=== PATIENT | male | born 1945 | race Caucasian/White ===

== ENCOUNTER 2018-03-31 09:04 | Day surgery (SDC) | payer MEDICARE ==
[~2018-03-31] VITALS: Ht 172.7 cm; Wt 84.1 kg
[2018-03-31 09:11] VITALS: BP 135/55
[2018-03-31] MEDS ORDERED: fentaNYL/PF 50MCG/1 ML 2ML syringe ONE (09:49)
[2018-03-31] MEDS ORDERED: MIDAZolam 5mg/5ml vial ONE ×2 (09:50)
[2018-03-31] MEDS ORDERED: INSU100C10 SQ (09:53)
[2018-03-31] MEDS ORDERED: MULT-38 PO (09:54)
[2018-03-31] MEDS ORDERED: CHOL10002 PO (09:55)
[2018-03-31] MEDS ORDERED: LISI40TA4 PO (09:55)
[2018-03-31] MEDS ORDERED: TERA5CAP4 PO (09:56)
[2018-03-31] MEDS ORDERED: PRAV40TA PO (09:56)
[2018-03-31] MEDS ORDERED: CLOP75TA33 PO (09:57)
[2018-03-31 10:32] VITALS: BP 110/49
[2018-03-31 10:42] VITALS: BP 119/51
[2018-03-31 10:52] VITALS: BP 125/64
== END 2018-03-31 11:27 | disposition home or self-care (01) ==
LOC: GI LAB 09:04
PROVIDERS: ATTEND Internal Medicine Gastroenterology
DX: Z12.11 Encounter for screening for malignant neoplasm of colon (principal); D12.8 Benign neoplasm of rectum; K64.8 Other hemorrhoids; K63.5 Polyp of colon; I10 Essential (primary) hypertension; E10.9 Type 1 diabetes mellitus without complications; Z95.1 Presence of aortocoronary bypass graft; Z87.891 Personal history of nicotine dependence; Z79.4 Long term (current) use of insulin; Z79.899 Other long term (current) drug therapy
CPT/HCPCS: 45380; 45385; 99153; G0500; J2250; J3010; J7030; A4620

== ENCOUNTER 2022-02-02 09:00 | Inpatient (IN) | payer MEDICARE ==
[2022-01-31 11:53] LABS: BASOPHILS % (AUTO) 0.2 % (0-1); EOSINOPHILS # (AUTO) 0.1 X10'3 (0-0.9); EOSINOPHILS % (AUTO) 2.5 % (0-6); LYMPHOCYTES # (AUTO) 0.7 X10'3 (1.1-4.8); LYMPHOCYTES % (AUTO) 14.6 % (21-51); MEAN CORPUSCULAR HEMOGLOBIN 29.8 PG (27.0-31.0); MEAN CORPUSCULAR VOLUME 90.4 FL (78-98); MEAN PLATELET VOLUME 9.2 FL (7.4-10.4); MONOCYTES # (AUTO) 0.6 X10'3 (0-0.9); NEUTROPHILS # (AUTO) 3.1 X10'3 (1.8-7.7); NEUTROPHILS % (AUTO) 69.7 % (42-75); PRE OP HEMATOCRIT 33.5 % (42.0-52.0); PRE OP PLATELET COUNT 184 X10'3 (140-440); RED CELL DISTRIBUTION WIDTH 14.5 % (11.5-14.5)
[2022-01-31 12:06] LABS: PRE OP PROTIME 10.2 SECONDS (9.0-12.0)
[2022-01-31 12:08] LABS: HEMOGLOBIN A1C 8.7 % (4.5-6.2)
[2022-01-31 12:09] LABS: ALBUMIN 2.9 G/DL (3.4-5.0); ALBUMIN/GLOBULIN RATIO 0.8 (1.1-1.5); ALKALINE PHOSPHATASE 83 IU/L (46-116); BLOOD UREA NITROGEN 43 MG/DL (7-18); BUN/CREATININE RATIO 19.5 (5.4-32.0); CALCIUM 8.4 MG/DL (8.5-10.1); CHLORIDE 100 MMOL/L (99-107); PRE OP ALT 52 U/L (30-65); PRE OP ANION GAP 11 (8-16); PRE OP AST 89 U/L (10-37); PRE OP BILIRUB, TOTAL 0.3 MG/DL (0.0-1.0); PRE OP POTASSIUM 5.1 MMOL/L (3.4-5.1); PRE OP SODIUM 133 MMOL/L (135-145); TOTAL PROTEIN 6.4 G/DL (6.4-8.2); eGFR 29 ML/MIN
[2022-01-31 12:32] LABS: CLARITY,URINE CLEAR (Clear); COLOR,URINE YELLOW (Yellow); GLUCOSE, URINE 500 mg/dl (Neg); KETONES,URINE NEGATIVE (Neg); LEUKOCYTE ESTERASE ,URINE NEGATIVE (Neg); NITRITES, URINE NEGATIVE (Neg); OCCULT BLOOD,URINE SMALL (Neg); PROTEIN,URINE 30 mg/dl (Neg); UROBILINOGEN,URINE 0.2 E.U/dL (0.2-1.0)
[2022-01-31 12:33] LABS: PRE OP GLUCOSE 340 MG/DL (70-104)
[2022-01-31 12:35] LABS: UA COLLECTION TYPE CLN CATCH MIDSTREAM
[2022-01-31 12:39] LABS: SQUAMOUS EPITHELIAL CELL,UR FEW /LPF (FEW)
[2022-01-31 12:40] LABS: BACTERIA,URINE 1+ /HPF (Neg); RBC,URINE 0-2 /HPF (0-2); WBC,URINE 0-4 /HPF (0-4)
[~2022-02-02] VITALS: Ht 172.7 cm; Wt 94.6 kg
[~2022-02-02 09:00] MED LIST: CARB1TAB36 PO; CLOP75TA33 PO; FINA5TAB11 PO; FURO20TA4 PO; INSU100C10 SQ; LISI-645 PO; ROSU40TA22 PO; TERA5CAP4 PO; albuterol 2.5 MG/3 ML nebule NEB ONE; cefazolin/dext.iso 2gm/50ml IV ONE; famotidine 20mg tablet PO ONE; ringers solution, lacted 1,000 ML IV SCH
[2022-02-06] VITALS (13 sets, daily range): BP systolic 136–195; BP diastolic 45–75
[2022-02-06] MEDS ORDERED: ringers solution, lacted 1,000 ML IV SCH ×2 (05:00→17:15)
[2022-02-06] MEDS ORDERED: famotidine 20mg tablet PO ONE (05:30)
[2022-02-06] MEDS ORDERED: albuterol 2.5 MG/3 ML nebule NEB ONE (05:30)
[2022-02-06] MEDS ORDERED: cefazolin/dext.iso 2gm/50ml IV ONE (05:30)
[2022-02-06] MEDS ORDERED: BUPIVAcaine 0.5% inj/PF 0 ML ONE (14:19)
[2022-02-06] MEDS ORDERED: heparin 10,000 units/1 ML INJ ONE (14:19)
[2022-02-06] MEDS ORDERED: fentaNYL /PF 50mcg/ml 5ml ampule ONE (14:36)
[2022-02-06] MEDS ORDERED: LIDOcaine 2% (20mg/ml) 5ml vial ONE (14:38)
[2022-02-06] MEDS ORDERED: rocuronium 10mg/ml inj IV ONE (14:38)
[2022-02-06] MEDS ORDERED: propofol inj 20 ML IV ONE (14:38)
[2022-02-06] MEDS ORDERED: LIDOcaine 1% (10mg/ml) 2ml vial ONE ×3 (14:43→14:45)
[2022-02-06] MEDS ORDERED: dexamethasone sod phosphate 4mg/ml inj. ONE (15:11)
[2022-02-06] MEDS ORDERED: sevoflurane 250ml liquid IH ONE (15:11)
[2022-02-06] MEDS ORDERED: ePHEDrine 50MG/ML INJ. ONE (15:11)
[2022-02-06] MEDS ORDERED: glycopyrrolate 0.2mg/ml inj ONE (15:11)
[2022-02-06] MEDS ORDERED: neostigmine methylsulfate 1 MG/ML 10ml vial ONE (15:11)
[2022-02-06] MEDS ORDERED: insulin regular, human U-100 3ml vial - multi-dose ONE (16:31)
[2022-02-06] MEDS ORDERED: iohexol 300 MG/1 ML 50ml polymer ONE (16:37)
[2022-02-06] MEDS ORDERED: ondansetron/PF 4mg/2ml inj IV PRN ×2 (17:15→21:10)
[2022-02-06] MEDS ORDERED: morphine 2 MG/ML inj. syringe IV PRN (17:15)
[2022-02-06] MEDS ORDERED: HYDROmorphone/PF 0.2 MG/ML SYRINGE IV PRN ×2 (17:15)
[2022-02-06] MEDS ORDERED: heparin 1,000unit/ml 10ml vial 10 ML ONE (17:52)
[2022-02-06] MEDS ORDERED: albumin (Human) 5% 250ml 250 ML IV ONE ×2 (17:53→19:08)
[2022-02-06] MEDS: DexTRAN 40/D5W 500ml soln 500 ML IV SCH (18:15)
[2022-02-06] MEDS ORDERED: naloxone 0.4 mg/ml inj IV PRN (20:25)
[2022-02-06] MEDS ORDERED: Potassium Cl inj 20 MEQ in ringers solution, lacted 1,000 ML IV SCH (20:25)
--- NOTE | 2022-02-06 20:27 | NUR ---
Received from OR via ICU BED , accompanied by Anesthesiologist MARTÍNEZ and report given by Anesthesiolgist. PATIENT WITH TRIPLE LUMEN LINE TO RIGHT NECK. 20G PIV IN RIGHT UE. 10L MASK ON WITH 100% SATURATIONS. PATIENT WITH NO C.O. PAIN AT THIS TIME. ISLAND DRESSING ALSO TO RIGHT CALF TO THIGH DRESSING THAT IS CDI. ALBERTO CATHETER WITH CLEAR YELLOW URINE PRESENT. RN PRESENT TO ASSIST WITH SET UP. Addendum: 02/06/22 at 2045 by Kurt Poole RN, RN Amended: Links added.
[2022-02-06 20:47] LABS: APTT 135 SECONDS (22-32)
[2022-02-06 20:48] LABS: BASOPHILS % (AUTO) 0.3 % (0-1); EOSINOPHILS % (AUTO) 0.3 % (0-6); HEMATOCRIT 28.3 % (42.0-52.0); HEMOGLOBIN 9.4 g/dl (14.0-17.9); LYMPHOCYTES # (AUTO) 0.7 X10'3 (1.1-4.8); LYMPHOCYTES % (AUTO) 13.1 % (21-51); MEAN CORPUSCULAR HEMOGLOBIN 29.9 PG (27.0-31.0); MEAN CORPUSCULAR HGB CONC 33.3 g/dL (33.0-36.5); MEAN CORPUSCULAR VOLUME 89.8 FL (78-98); MONOCYTES # (AUTO) 0.1 X10'3 (0-0.9); MONOCYTES % (AUTO) 1.2 % (2-12); NEUTROPHILS # (AUTO) 4.8 X10'3 (1.8-7.7); NEUTROPHILS % (AUTO) 85.1 % (42-75); PLATELET COUNT 189 X10'3 (140-440); RED BLOOD COUNT 3.16 X10'6 (4.70-6.10); RED CELL DISTRIBUTION WIDTH 13.8 % (11.5-14.5); WHITE BLOOD COUNT 5.7 X10'3 (4.5-11.0)
[2022-02-06] MEDS ORDERED: hydrALAZINE 20mg/ml inj. IV ONE (20:58)
[2022-02-06] MEDS ORDERED: SODIUM CHLORIDE IV ONE (21:00)
[2022-02-06] MEDS ORDERED: NICARDIPINE IV ONE (21:00)
[2022-02-06] MEDS ORDERED: hydrALAZINE 20mg/ml inj. IV PRN ×2 (21:00→22:50)
[2022-02-06 21:02] LABS: ALANINE AMINOTRANSFERASE 71 U/L (12-78); ALBUMIN 2.8 G/DL (3.4-5.0); ALKALINE PHOSPHATASE 65 IU/L (46-116); ANION GAP 9 (8-16); ASPARTATE AMINO TRANSFERASE 30 U/L (10-37); BILIRUBIN,TOTAL 0.3 MG/DL (0.1-1.0); BLOOD UREA NITROGEN 27 MG/DL (7-18); BUN/CREATININE RATIO 21.3 (5.4-32.0); CALCIUM 7.5 MG/DL (8.5-10.1); CHLORIDE 106 MMOL/L (99-107); CREATININE 1.27 MG/DL (0.60-1.10); GLUCOSE 197 MG/DL (70-104); POTASSIUM 3.8 MMOL/L (3.5-5.1); SODIUM 138 MMOL/L (135-145); TOTAL CARBON DIOXIDE 22.7 MMOL/L (24-32); TOTAL PROTEIN 5.5 G/DL (6.4-8.2); eGFR 55 ML/MIN
--- NOTE | 2022-02-06 21:07 | NUR ---
RECOVERY PERFORMED IN THE ICU 2008 WITH ASSIST OF TOMMY SUMNER AND TOMMY DAWN. MD PALMER CAME BY. SHOWED SWELLING TO RIGHT INGUINAL AREA AND DONNED A LITER OF NS PER MD REQUEST. RN TO CONTINUE TO REASSESS. VSS. MD AWARE OF HIGHER BPS DURING RECOVERY AND APPROPRIATE MEDS ORDERED AND ADMINISTERED. DRESSING ALL STILL THE SAME FAR DRAINAGE. DP AND POSTERIOR TIB STILL BOTH PALPABLE AT THIS TIME. CALF/ THIGH DRESSINGS STILL SPOTTED AND CONTAINED WITHIN DRESSING . TOMMY DAWN ASSUMED CARE OF PATIENT. Addendum: 02/06/22 at 2116 by Kurt Torres - TOMMY SANDERS Amended: Links added.
[2022-02-06] MEDS ORDERED: HYDROcodone/acetaminophen 10/325mg tab PO PRN (21:10)
[2022-02-06] MEDS ORDERED: HYDROmorphone inj. 0.5 MG/0.5 ML DISP.SYRIN IV PRN (21:10)
[2022-02-06] MEDS ORDERED: niCARDipine-NS 40mg/200ml IVPB 200 ML IV PRN (21:10)
[2022-02-06] MEDS ORDERED: glucagon, human recombinant 1mg kit SUBCUT PRN (22:50)
[2022-02-06] MEDS ORDERED: MESSAGE TO PHARMACY PO ONE (22:50)
[2022-02-06] MEDS ORDERED: DEXTROSE 15 GM of carb/4 tabs (each vial/BOTTLE has 4 tablets) PO PRN ×2 (22:50)
[2022-02-06] MEDS ORDERED: dextrose 50%-water 50ml dispensing syringe IV PRN ×2 (22:50)
[2022-02-06] MEDS: HYDROcodone/acetaminophen 10/325mg tab PO PRN (23:03)
[2022-02-06] MEDS ORDERED: potassium 20mEq/D5LR 1,000 ML IV SCH (23:15)
--- NOTE | 2022-02-06 23:56 | NUR ---
Received responsibility for pt from corrugator supervisor Kurt. Dr Green was at bedside to assess pt. Later called Dr Green regarding right noguera dressing saturation, was instructed to reinforce dressing and continue to monitor with no new orders. Also called bottom turner Dr Ewing at the request of Dr Green so Critical Care can follow pt. Notified Dr Ewing of high blood pressure concerns and pts DM 1 status, new orders received.
[2022-02-07] VITALS (18 sets, daily range): BP systolic 108–153; BP diastolic 36–69
[2022-02-07] MEDS: ceFAZolin 1GM/D5W- ADD-VANTAGE 50 ML IV SCH ×3 (00:19→15:30)
[2022-02-07] MEDS: DexTRAN 40/D5W 500ml soln 500 ML IV SCH ×2 (00:46→05:23)
[2022-02-07] MEDS ORDERED: insulin Lispro (HumaLOG) vial - multi-dose SQ ONE ×4 (02:30→23:55)
--- NOTE | 2022-02-07 02:37 | NUR ---
Called Dr Ewing to report blood glucose of 435. Given telephone orders to give one time dose of insulin 20 units and recheck blood glucose at 0430. Also given orders to stop potassium in D5W LR and start LR at 125 ml/hr. Spoke with pharmacist to clarify the order change for potassium in LR to potassium in D5W LR. Pharmacist stated Dr Green requested the change from potassium in LR to potassium in D5W LR.
[2022-02-07] MEDS: ringers solution, lacted 1,000 ML IV SCH ×3 (02:43→22:34)
[2022-02-07 02:45] LABS: BASOPHILS % (AUTO) 0 % (0-1); EOSINOPHILS % (AUTO) 0 % (0-6); HEMATOCRIT 27.1 % (42.0-52.0); HEMOGLOBIN 8.9 g/dl (14.0-17.9); LYMPHOCYTES # (AUTO) 0.3 X10'3 (1.1-4.8); LYMPHOCYTES % (AUTO) 2.4 % (21-51); MEAN CORPUSCULAR HGB CONC 32.8 g/dL (33.0-36.5); MEAN CORPUSCULAR VOLUME 91.2 FL (78-98); MEAN PLATELET VOLUME 9.7 FL (7.4-10.4); MONOCYTES # (AUTO) 0.5 X10'3 (0-0.9); MONOCYTES % (AUTO) 4.4 % (2-12); NEUTROPHILS % (AUTO) 93.2 % (42-75); PLATELET COUNT 177 X10'3 (140-440); RED BLOOD COUNT 2.97 X10'6 (4.70-6.10); RED CELL DISTRIBUTION WIDTH 14.2 % (11.5-14.5); WHITE BLOOD COUNT 10.7 X10'3 (4.5-11.0)
[2022-02-07 03:02] LABS: ALBUMIN 2.4 G/DL (3.4-5.0); ANION GAP 12 (8-16); BLOOD UREA NITROGEN 30 MG/DL (7-18); BUN/CREATININE RATIO 21.1 (5.4-32.0); CALCIUM 7.3 MG/DL (8.5-10.1); CHLORIDE 101 MMOL/L (99-107); CREATININE 1.42 MG/DL (0.60-1.10); POTASSIUM 5.9 MMOL/L (3.5-5.1); SODIUM 132 MMOL/L (135-145); eGFR 48 ML/MIN
[2022-02-07] MEDS: ondansetron/PF 4mg/2ml inj IV PRN ×3 (03:04→23:37)
[2022-02-07 03:11] LABS: GLUCOSE 466 MG/DL (70-104)
[2022-02-07 04:13] LABS: PLATELET ESTIMATE NORMAL; TOTAL CELLS COUNTED 100
[2022-02-07] MEDS ORDERED: Insulin Reg/NS 100units/100mL 100 ML IV SCH (05:05)
[2022-02-07] MEDS ORDERED: dextrose 50%-water 50ml dispensing syringe IV PRN (05:05)
[2022-02-07] MEDS ORDERED: insulin Lispro (HumaLOG) vial - multi-dose SQ PRN (05:05)
[2022-02-07] MEDS ORDERED: acetaminophen 325mg tablet PO PRN (05:10)
--- NOTE | 2022-02-07 05:13 | NUR ---
Notified Dr Fofana of critical blood glucose of 405, elevated potassium, and decreasing hgb. Insulin gtt ordered, repeat BMP, CBC for noon today.
[2022-02-07] MEDS: insulin Lispro (HumaLOG) vial - multi-dose SQ SCH (06:01)
[2022-02-07] MEDS ORDERED: albuterol 2.5 MG/3 ML nebule NEB SCH (07:00)
--- NOTE | 2022-02-07 12:22 | NUR ---
DM Consult: Pt admit DX nonhealing wound RLE secondary to multilevel PAD s/p OR w/ R groin surgical wound and vac noted per EMR. Pt hx T1DM w/ insulin pump A1C 8.7% per EMR. Pt advanced to carb controlled diet this AM post-op ate breakfast though N/V following per RN. Glu 143mg/dl this AM down from 455mg/dl last night when pt received Dextran and IV solutions containing dextrose administration per EMR; currently on insulin drip to change to pt insulin pump once off drip per engineering design manager at rounds. Pt seen by RD reports T1DM for 60 years w/ insulin pump doesn't count CHO has pump set to desired Glu range and rarely has pump issues as well as no issues w/ insulin supply either. Pt reports has had educations in past and politely declines DM eds this admit. Noted pt hx Parkinsons w/ forearms trembling during RD visit; pt reports no issues chewing/swallowing or cutting foods w/ no assistance needed at meals or food preferences. Will monitor for PO trends once N/V resolve and further nutrition intervention needs this admit. Rec: 1. Continue carb controlled diet; no assistance/texture modification needed per pt despite Parkinson's hx w/ forearm tremors 2. Monitor for ONS need pending PO trends; consider Kemal post-op for wound healing 3. routine bowel care 4. weekly wts Addendum: 02/07/22 at [address] Amended: Links added.
--- NOTE | 2022-02-07 12:47 | NUR ---
PRESSURE ULCER EDUCATION: DEFINITION: A pressure ulcer is an area of skin that breaks down when you stay in one position too long. The constant pressure against the skin reduces the blood flow to that area and the affected tissue dies. CAUSES: "Being bedridden or in a wheelchair "Fragile skin "Having a chronic condition, such as diabetes or vascular disease "Inability to move certain parts of your body without assistance "Older age "Incontinence of urine or stool SYMPTOMS: "A reddened area that DOES NOT turn white when pressed on - this can be the beginning of a pressure ulcer "A blister, deep sore or a crater - these can be advanced pressure ulcers FIRST AID: "Relieve the pressure on this area "Keep the area clean and dry "Call your primary doctor if you see any of the above symptoms "DO NOT massage the area "DO NOT use a donut shaped or ring shaped pillow- these actually interfere with the blood flow and cause complications PREVENTION: "Check for pressure ulcers everyday "Change position at least every two hours to relieve pressure "Use items that help relieve pressure- pillows, sheepskin, foam padding, and powders. "Keep skin clean and dry "Eat healthy well balanced meals "Exercise daily IF YOU SEE ANY OF THESE SYMPTOMS WHILE IN THE HOSPITAL - TELL YOUR NURSE IMMEDIATELY. IF YOU SEE ANY OF THESE SYMPTOMS WHILE AT HOME OR HAVE ANY QUESTIONS OR CONCERNS ABOUT PRESSURE ULCERS - CALL YOUR PRIMARY DOCTOR IMMEDIATELY. Addendum: 02/07/22 at 1248 by Melisa Jones LVN Amended: Links added.
[2022-02-07] MEDS: HYDROcodone/acetaminophen 10/325mg tab PO PRN (14:57)
[2022-02-07 14:59] LABS: BASOPHILS % (AUTO) 0 % (0-1); EOSINOPHILS % (AUTO) 0 % (0-6); HEMATOCRIT 25.6 % (42.0-52.0); HEMOGLOBIN 8.4 g/dl (14.0-17.9); LYMPHOCYTES # (AUTO) 0.7 X10'3 (1.1-4.8); LYMPHOCYTES % (AUTO) 6.9 % (21-51); MEAN CORPUSCULAR HEMOGLOBIN 29.8 PG (27.0-31.0); MEAN CORPUSCULAR VOLUME 90.3 FL (78-98); MEAN PLATELET VOLUME 9.5 FL (7.4-10.4); MONOCYTES # (AUTO) 0.8 X10'3 (0-0.9); NEUTROPHILS # (AUTO) 8.2 X10'3 (1.8-7.7); NEUTROPHILS % (AUTO) 85.1 % (42-75); PLATELET COUNT 193 X10'3 (140-440); RED BLOOD COUNT 2.83 X10'6 (4.70-6.10); RED CELL DISTRIBUTION WIDTH 14.2 % (11.5-14.5); WHITE BLOOD COUNT 9.7 X10'3 (4.5-11.0)
--- NOTE | 2022-02-07 15:03 | NUR ---
RICHA Campbell and art line dc'd. Pt to be transferred to floor per Dr. Green
[2022-02-07 15:11] LABS: ALBUMIN 2.2 G/DL (3.4-5.0); ANION GAP 7 (8-16); BLOOD UREA NITROGEN 31 MG/DL (7-18); BUN/CREATININE RATIO 21.1 (5.4-32.0); CALCIUM 7.3 MG/DL (8.5-10.1); CHLORIDE 102 MMOL/L (99-107); CREATININE 1.47 MG/DL (0.60-1.10); GLUCOSE 259 MG/DL (70-104); SODIUM 132 MMOL/L (135-145); TOTAL CARBON DIOXIDE 22.7 MMOL/L (24-32); eGFR 46 ML/MIN
[2022-02-07] MEDS: clopidogrel 75mg tablet PO SCH (15:29)
--- NOTE | 2022-02-07 17:45 | NUR ---
Pt transferred to tele 3013B on ICU bed Moved over to tele bed via slider. Chart, med and belongings with pt. Daughter was going to take home insulin pump
--- NOTE | 2022-02-07 17:50 | NUR ---
received report from TOMMY Singh. patient arrived to the floor asking to be placed in a chair. patient is moved to a chair. wound vac is at 125, no drainage in cannister. all dressings are CDI.
--- NOTE | 2022-02-07 17:57 | NUR ---
notified from television news video editor that patient was going in and out of sinus rhythm and a junctional rhythm. ICU said they were unaware that this was happening. t/c to Dr. Green to inform him of this finding. He is now aware, new orders received.
--- NOTE | 2022-02-07 18:27 | NUR ---
Problems reprioritized. Patient report given, questions answered & plan of care reviewed with TOMMY Monroy and TOMMY Blood.
[2022-02-07 18:43] LABS: MAGNESIUM 1.8 MG/DL (1.5-2.4)
[2022-02-07 18:49] LABS: POTASSIUM 6.1 MMOL/L (3.5-5.1)
--- NOTE | 2022-02-07 19:06 | NUR ---
Critical potassium 6.1 ; paged hospitalist at 19:05 pm.
[2022-02-07] MEDS ORDERED: SODIUM ZIRCONIUM CYCLOSILICATE 10 GM POWD.PACK PO ONE (19:35)
[2022-02-07] MEDS ORDERED: insulin regular, human 10 units/0.1 ml syringe SQ ONE (19:35)
[2022-02-07] MEDS: dextrose 50%-water 50ml dispensing syringe IV ONE ×2 (19:35→21:37)
[2022-02-07] MEDS ORDERED: albuterol 1.25 MG/3 ML (1/2 strength) nebule NEB PRN (19:35)
[2022-02-07] MEDS ORDERED: insulin glargine (Lantus) pen - multi-dose SQ SCH (21:00)
[2022-02-07] MEDS: terazosin 5mg capsule PO SCH (21:37)
[2022-02-07] MEDS: carbidoba-levodopa 25-100mg tablet PO SCH (21:37)
[2022-02-07] MEDS: calcium chloride inj. 1,000 MG in normal saline 100ml IV soln 100 ML IV ONE ×2 (21:38→22:46)
--- NOTE | 2022-02-07 22:00 | NUR ---
Notified Dr. Thibodeaux of pts critical BS of 523 orders for 28 units of lispro was given and implemented. Pt is stable at this time no complain of pain, will continue to monitor.
[2022-02-07] MEDS ORDERED: albuterol 2.5 MG/3 ML nebule NEB ONE (23:05)
--- NOTE | 2022-02-08 | NUR ---
Repeat PT BS after an hour BS is 497. Notified Dr. Thibodeaux and orders for 25 units of lispro ordered and implemented. Will continue to monitor.
[2022-02-08 02:00] VITALS: BP 139/40
[2022-02-08 02:11] LABS: ALBUMIN 2.2 G/DL (3.4-5.0); ANION GAP 11 (8-16); BLOOD UREA NITROGEN 42 MG/DL (7-18); BUN/CREATININE RATIO 18.6 (5.4-32.0); CALCIUM 7.6 MG/DL (8.5-10.1); CHLORIDE 100 MMOL/L (99-107); CREATININE 2.26 MG/DL (0.60-1.10); GLUCOSE 425 MG/DL (70-104); POTASSIUM 4.9 MMOL/L (3.5-5.1); SODIUM 133 MMOL/L (135-145); TOTAL CARBON DIOXIDE 22.1 MMOL/L (24-32); eGFR 28 ML/MIN
--- NOTE | 2022-02-08 02:48 | NUR ---
Pt BS has decreased from 497 to 298 pt is stable at this time. Call light with in reach. Will continue to monitor.
[2022-02-08] MEDS ORDERED: cefazolin/dext.iso 2gm/50ml IV ONE (05:30)
--- NOTE | 2022-02-08 06:30 | NUR ---
Problems reprioritized and patient report given. question answered and plan of care reviewed with fox SANDERS.
[2022-02-08 06:44] LABS: BASOPHILS % (AUTO) 0.1 % (0-1); EOSINOPHILS % (AUTO) 0 % (0-6); HEMOGLOBIN 8.7 g/dl (14.0-17.9); LYMPHOCYTES # (AUTO) 0.8 X10'3 (1.1-4.8); LYMPHOCYTES % (AUTO) 8.1 % (21-51); MEAN CORPUSCULAR HEMOGLOBIN 29.9 PG (27.0-31.0); MEAN CORPUSCULAR HGB CONC 33.3 g/dL (33.0-36.5); MEAN CORPUSCULAR VOLUME 89.9 FL (78-98); MEAN PLATELET VOLUME 9.8 FL (7.4-10.4); MONOCYTES # (AUTO) 1.1 X10'3 (0-0.9); MONOCYTES % (AUTO) 10.9 % (2-12); NEUTROPHILS % (AUTO) 80.9 % (42-75); PLATELET COUNT 203 X10'3 (140-440); WHITE BLOOD COUNT 9.9 X10'3 (4.5-11.0)
[2022-02-08 06:52] LABS: ALBUMIN 2.2 G/DL (3.4-5.0); ANION GAP 8 (8-16); BLOOD UREA NITROGEN 42 MG/DL (7-18); BUN/CREATININE RATIO 21.1 (5.4-32.0); CALCIUM 7.8 MG/DL (8.5-10.1); CHLORIDE 101 MMOL/L (99-107); CREATININE 1.99 MG/DL (0.60-1.10); GLUCOSE 225 MG/DL (70-104); SODIUM 133 MMOL/L (135-145); TOTAL CARBON DIOXIDE 24.3 MMOL/L (24-32); eGFR 33 ML/MIN
[2022-02-08 06:54] LABS: POTASSIUM 5.3 MMOL/L (3.5-5.1)
[2022-02-08 07:00] VITALS: BP 136/66
[2022-02-08] MEDS: atorvastatin 20mg tablet PO SCH (07:36)
[2022-02-08] MEDS: carbidoba-levodopa 25-100mg tablet PO SCH ×3 (07:36→21:52)
[2022-02-08] MEDS: HYDROcodone/acetaminophen 10/325mg tab PO PRN ×2 (07:37→23:02)
[2022-02-08] MEDS: furosemide 20MG tablet PO SCH (07:37)
[2022-02-08] MEDS: clopidogrel 75mg tablet PO SCH (07:37)
[2022-02-08] MEDS: lisinopril 20mg tablet PO SCH (07:40)
[2022-02-08] MEDS: finasteride 5mg tablet PO SCH (09:55)
[2022-02-08] MEDS: ringers solution, lacted 1,000 ML IV SCH (09:55)
[2022-02-08] MEDS: insulin Lispro (HumaLOG) vial - multi-dose SQ SCH ×4 (10:05→19:05)
[2022-02-08 11:00] VITALS: BP 106/43
[2022-02-08] MEDS: ceFOXitin inj 1,000 MG in normal saline 100ml IV soln 100 ML IV SCH (16:00)
[2022-02-08 18:30] VITALS: BP 117/45
--- NOTE | 2022-02-08 18:45 | NUR ---
Patient in room U 3013b. I have received report and had the opportunity to ask questions and assume patient care.
--- NOTE | 2022-02-08 18:47 | NUR ---
pt is post nunez removal. had total 300ml on mt shift. bladder scanned pt-491ml noted. per charge nurse, no order needed for straight cath. endorsed to oncoming RN straight cath
[2022-02-08] MEDS ORDERED: LIDOcaine 2% 10ml TOPICAL JELLY (Urojet) MM ONE (20:20)
[2022-02-08 22:00] VITALS: BP 148/58
--- NOTE | 2022-02-08 22:10 | NUR ---
bladder scanned pt, shows 478 ml of urine. pt unable to void Addendum: 02/09/22 at 0224 by Ingris Mobley LVN Amended: Links added.
[2022-02-08] MEDS: terazosin 5mg capsule PO SCH (23:00)
[2022-02-09] VITALS (7 sets, daily range): BP systolic 98–143; BP diastolic 34–68
--- NOTE | 2022-02-09 00:28 | NUR ---
palpable pulses weak, checked with doppler, right strong with doppler, left checked with doppler weaker than right. leges elev on pillow Addendum: 02/09/22 at 0029 by Pretty Vazquez RN Amended: Links added.
[2022-02-09] MEDS: ceFOXitin inj 1,000 MG in normal saline 100ml IV soln 100 ML IV SCH ×3 (00:54→20:36)
--- NOTE | 2022-02-09 03:21 | NUR ---
up to chair weak, but genny sba. socks mortgage loan coordinator slippers on feet, right pedal pulse weak but palpable, foot warm, left pedal weaker than right, foot sl cooler. wound vac intact. Addendum: 02/09/22 at 0325 by Pretty Vazquez RN Amended: Links added.
--- NOTE | 2022-02-09 03:57 | NUR ---
reviewed assessment and interventions done by FE Amado Addendum: 02/09/22 at 0358 by Pretty Vazquez RN Amended: Links added.
--- NOTE | 2022-02-09 06:19 | NUR ---
Problems reprioritized. Patient report given, questions answered & plan of care reviewed with rn.
--- NOTE | 2022-02-09 06:24 | NUR ---
Problems reprioritized. Patient report given, questions answered & plan of care reviewed with TOMMY BOLAÑOS. Addendum: 02/09/22 at 0624 by Pretty Vazquez RN Amended: Links added.
[2022-02-09 06:36] LABS: BASOPHILS % (AUTO) 0.1 % (0-1); EOSINOPHILS % (AUTO) 0 % (0-6); LYMPHOCYTES # (AUTO) 0.7 X10'3 (1.1-4.8); LYMPHOCYTES % (AUTO) 6.9 % (21-51); MEAN CORPUSCULAR HEMOGLOBIN 29.4 PG (27.0-31.0); MEAN CORPUSCULAR HGB CONC 32.3 g/dL (33.0-36.5); MEAN CORPUSCULAR VOLUME 91.1 FL (78-98); MEAN PLATELET VOLUME 10.4 FL (7.4-10.4); MONOCYTES # (AUTO) 1.1 X10'3 (0-0.9); MONOCYTES % (AUTO) 10.7 % (2-12); NEUTROPHILS # (AUTO) 8.8 X10'3 (1.8-7.7); NEUTROPHILS % (AUTO) 82.3 % (42-75); PLATELET COUNT 219 X10'3 (140-440); RED BLOOD COUNT 3.07 X10'6 (4.70-6.10); WHITE BLOOD COUNT 10.7 X10'3 (4.5-11.0)
[2022-02-09 06:53] LABS: ALBUMIN 2.3 G/DL (3.4-5.0); ANION GAP 12 (8-16); BLOOD UREA NITROGEN 58 MG/DL (7-18); BUN/CREATININE RATIO 18.4 (5.4-32.0); CALCIUM 7.6 MG/DL (8.5-10.1); CHLORIDE 96 MMOL/L (99-107); CREATININE 3.15 MG/DL (0.60-1.10); GLUCOSE 422 MG/DL (70-104); SODIUM 127 MMOL/L (135-145); TOTAL CARBON DIOXIDE 18.9 MMOL/L (24-32); eGFR 19 ML/MIN
[2022-02-09 06:59] LABS: POTASSIUM 6.2 MMOL/L (3.5-5.1)
[2022-02-09] MEDS: finasteride 5mg tablet PO SCH (08:44)
[2022-02-09] MEDS: carbidoba-levodopa 25-100mg tablet PO SCH ×3 (08:45→20:41)
[2022-02-09] MEDS: clopidogrel 75mg tablet PO SCH (08:45)
[2022-02-09] MEDS: lisinopril 20mg tablet PO SCH (08:46)
[2022-02-09] MEDS: atorvastatin 20mg tablet PO SCH (08:47)
[2022-02-09] MEDS: furosemide 20MG tablet PO SCH (08:47)
[2022-02-09] MEDS: insulin Lispro (HumaLOG) vial - multi-dose SQ SCH ×4 (09:13→21:06)
[2022-02-09 12:12] LABS: CREATINE KINASE 496 U/L (39-308); POTASSIUM 5.9 MMOL/L (3.5-5.1)
[2022-02-09] MEDS: sodium bicarbonate (8.4%) inj. 100 MEQ in dextrose 5%-water 1,000 ML IV SCH (17:46)
[2022-02-09] MEDS: terazosin 5mg capsule PO SCH (20:41)
[2022-02-09] MEDS: nystatin 15 GM powder TP SCH (21:07)
[2022-02-10 02:00] VITALS: BP 131/56
[2022-02-10] MEDS: sodium bicarbonate (8.4%) inj. 100 MEQ in dextrose 5%-water 1,000 ML IV SCH ×2 (02:50→09:24)
--- NOTE | 2022-02-10 06:27 | NUR ---
Problems reprioritized. Patient report given, questions answered & plan of care reviewed with Shannon SANDERS. Addendum: 02/10/22 at 0627 by Hilda Sherman RN Amended: Links added.
[2022-02-10 06:51] LABS: BASOPHILS % (AUTO) 0.3 % (0-1); EOSINOPHILS % (AUTO) 0.2 % (0-6); HEMATOCRIT 23.2 % (42.0-52.0); HEMOGLOBIN 7.9 g/dl (14.0-17.9); LYMPHOCYTES # (AUTO) 1.3 X10'3 (1.1-4.8); LYMPHOCYTES % (AUTO) 15.2 % (21-51); MEAN CORPUSCULAR HEMOGLOBIN 30.1 PG (27.0-31.0); MEAN CORPUSCULAR VOLUME 88.5 FL (78-98); MEAN PLATELET VOLUME 10.2 FL (7.4-10.4); MONOCYTES # (AUTO) 0.9 X10'3 (0-0.9); MONOCYTES % (AUTO) 10.9 % (2-12); NEUTROPHILS # (AUTO) 6.1 X10'3 (1.8-7.7); NEUTROPHILS % (AUTO) 73.4 % (42-75); PLATELET COUNT 212 X10'3 (140-440); RED BLOOD COUNT 2.62 X10'6 (4.70-6.10); WHITE BLOOD COUNT 8.3 X10'3 (4.5-11.0)
[2022-02-10 06:57] LABS: ALBUMIN 1.9 G/DL (3.4-5.0); ANION GAP 8 (8-16); BLOOD UREA NITROGEN 77 MG/DL (7-18); BUN/CREATININE RATIO 23.2 (5.4-32.0); CALCIUM 7.3 MG/DL (8.5-10.1); CHLORIDE 97 MMOL/L (99-107); CREATININE 3.32 MG/DL (0.60-1.10); GLUCOSE 295 MG/DL (70-104); POTASSIUM 4.6 MMOL/L (3.5-5.1); SODIUM 127 MMOL/L (135-145); TOTAL CARBON DIOXIDE 22.1 MMOL/L (24-32); eGFR 18 ML/MIN
[2022-02-10 07:00] VITALS: BP 123/43
[2022-02-10] MEDS: nystatin 15 GM powder TP SCH ×3 (08:00→21:00)
[2022-02-10] MEDS: ceFOXitin inj 1,000 MG in normal saline 100ml IV soln 100 ML IV SCH ×2 (09:05→21:47)
[2022-02-10] MEDS: atorvastatin 20mg tablet PO SCH (09:06)
[2022-02-10] MEDS: clopidogrel 75mg tablet PO SCH (09:06)
[2022-02-10] MEDS: furosemide 20MG tablet PO SCH (09:06)
[2022-02-10] MEDS: finasteride 5mg tablet PO SCH (09:06)
[2022-02-10] MEDS: carbidoba-levodopa 25-100mg tablet PO SCH ×3 (09:06→21:35)
[2022-02-10] MEDS: insulin Lispro (HumaLOG) vial - multi-dose SQ SCH ×2 (09:22→13:31)
[2022-02-10 11:00] VITALS: BP 119/36
--- NOTE | 2022-02-10 14:26 | NUR ---
patient seen by Dr Peter miller for patient to go on own insulin pump family notified. Ok to change leg dressing .
[2022-02-10] MEDS: HYDROcodone/acetaminophen 10/325mg tab PO PRN ×2 (16:07→21:47)
--- NOTE | 2022-02-10 16:09 | NUR ---
surgical dressing to right leg changed and wound to right lower leg pictured and changed. honey plus alginate plus calzime cream around the borders applied [place] given for pAIN 06/30. WILL CONTINUE TO MONITOR
[2022-02-10 16:32] VITALS: BP 128/47
[2022-02-10] MEDS: insulin pump.resvr SQ SCH (17:00)
[2022-02-10 18:00] VITALS: BP 133/46
--- NOTE | 2022-02-10 18:00 | NUR ---
Pt has order from Dr and patient agreement form for insulin pump signed, however unable to get pts current settings from pump. Family was called and pt now seems confused about pump and is attempting to reset it. Insulin pump is now turned off and will not be used until he can get ordered settings and have agreement form appropriately filled out. Will continue with our ordered protocol, in which at this time pt didn't require coverage during first part of shift, with insulin pump being calibrated. Addendum: 02/10/22 at 2330 by Hilda Sherman RN Amended: Links added.
--- NOTE | 2022-02-10 18:44 | NUR ---
patient placed insulin pump 1600hrs when daughter brought in. Unable to chart on pump as pump takes 3 hrs to begin infusion per patient . BS today was [phone]. . Talked with Ingris pharmacist with regards thuis and gave report to kwame SANDERS
[2022-02-10] MEDS ORDERED: insulin Lispro (HumaLOG) vial - multi-dose SQ SCH (20:40)
[2022-02-10] MEDS: insulin glargine (Lantus) pen - multi-dose SQ SCH (21:00)
[2022-02-10] MEDS: terazosin 5mg capsule PO SCH (21:35)
[2022-02-10 22:00] VITALS: BP 118/39
--- NOTE | 2022-02-10 22:00 | NUR ---
UA sent as per Dr. Sindhu quezada from [facility]. Addendum: 02/10/22 at 2249 by Hilda Sherman RN Amended: Links added.
[2022-02-10 22:15] LABS: SODIUM,URINE RANDOM < 15 MEQ/L; TOTAL PROTEIN,URINE RANDOM 73.6 MG/DL
[2022-02-10 22:29] LABS: CLARITY,URINE CLOUDY (Clear); COLOR,URINE YELLOW (Yellow); GLUCOSE, URINE NEGATIVE (Neg); KETONES,URINE TRACE mg/dl (Neg); LEUKOCYTE ESTERASE ,URINE NEGATIVE (Neg); NITRITES, URINE NEGATIVE (Neg); OCCULT BLOOD,URINE MODERATE (Neg); PH,URINE 5.5 (4.8-8.0); PROTEIN,URINE 30 mg/dl (Neg); UROBILINOGEN,URINE 0.2 E.U/dL (0.2-1.0)
[2022-02-10 22:31] LABS: UA COLLECTION TYPE FOLEY CATH
[2022-02-10 22:50] LABS: COARSE GRANULAR CAST 0-3 /LPF (NEGATIVE); SQUAMOUS EPITHELIAL CELL,UR FEW /LPF (FEW)
[2022-02-10 22:51] LABS: WBC,URINE 0-4 /HPF (0-4)
[2022-02-10 22:53] LABS: AMORPHOUS URATES 2+
[2022-02-10 22:54] LABS: BACTERIA,URINE NONE SEEN /HPF (Neg)
[2022-02-10 23:12] LABS: UA EOSINOPHILS NO EOS /HPF
[2022-02-11] MEDS: sodium bicarbonate (8.4%) inj. 100 MEQ in dextrose 5%-water 1,000 ML IV SCH ×3 (00:50→21:08)
[2022-02-11 02:00] VITALS: BP 121/52
[2022-02-11 06:00] VITALS: BP 135/49
[2022-02-11 06:49] LABS: BASOPHILS % (AUTO) 0.4 % (0-1); EOSINOPHILS # (AUTO) 0.1 X10'3 (0-0.9); EOSINOPHILS % (AUTO) 1.3 % (0-6); HEMATOCRIT 23.9 % (42.0-52.0); LYMPHOCYTES # (AUTO) 1.4 X10'3 (1.1-4.8); LYMPHOCYTES % (AUTO) 22.3 % (21-51); MEAN CORPUSCULAR HEMOGLOBIN 29.4 PG (27.0-31.0); MEAN CORPUSCULAR HGB CONC 33.4 g/dL (33.0-36.5); MEAN CORPUSCULAR VOLUME 87.9 FL (78-98); MEAN PLATELET VOLUME 10.2 FL (7.4-10.4); MONOCYTES # (AUTO) 0.9 X10'3 (0-0.9); MONOCYTES % (AUTO) 14.2 % (2-12); NEUTROPHILS # (AUTO) 3.9 X10'3 (1.8-7.7); NEUTROPHILS % (AUTO) 61.8 % (42-75); PLATELET COUNT 239 X10'3 (140-440); RED BLOOD COUNT 2.72 X10'6 (4.70-6.10); RED CELL DISTRIBUTION WIDTH 14.1 % (11.5-14.5); WHITE BLOOD COUNT 6.4 X10'3 (4.5-11.0)
[2022-02-11 06:55] LABS: ALBUMIN 1.8 G/DL (3.4-5.0); ANION GAP 7 (8-16); BLOOD UREA NITROGEN 83 MG/DL (7-18); BUN/CREATININE RATIO 26.7 (5.4-32.0); CALCIUM 7.4 MG/DL (8.5-10.1); CHLORIDE 98 MMOL/L (99-107); CREATININE 3.11 MG/DL (0.60-1.10); GLUCOSE 101 MG/DL (70-104); POTASSIUM 4.2 MMOL/L (3.5-5.1); SODIUM 131 MMOL/L (135-145); eGFR 20 ML/MIN
[2022-02-11] MEDS: nystatin 15 GM powder TP SCH ×3 (08:00→20:28)
--- NOTE | 2022-02-11 08:30 | NUR ---
Reassessment; Pt continues on Carb controlled diet w/ moderate PO intake, avg 50% of meals partially meeting needs. Pt can benefit from Kemal smoothies BID to assist w/ wound healing, as well as Glucerna BID for additional calories/protein. Per md senior research scientist it appears that pt has his insulin pump working again. LBM 02/06, recommend adding routine bowel care if MD agreeable. Will continue to monitor Rec: 1. Continue carb controlled diet; no assistance/texture modification needed per pt despite Parkinson's hx w/ forearm tremors 2. Kemal BIDBL, Glucerna BIDBD; pending MD verification 3. Consider changing NaBicarb/D5 to NaBicarb/NS if medically feasible per MD discretion 4. routine bowel care 5. weekly wts Addendum: 02/11/22 at [address] Amended: Links added.
[2022-02-11] MEDS: ceFOXitin inj 1,000 MG in normal saline 100ml IV soln 100 ML IV SCH ×2 (09:18→20:30)
[2022-02-11] MEDS: atorvastatin 20mg tablet PO SCH (09:19)
[2022-02-11] MEDS: carbidoba-levodopa 25-100mg tablet PO SCH ×4 (09:19→20:28)
[2022-02-11] MEDS: finasteride 5mg tablet PO SCH (09:20)
[2022-02-11] MEDS: clopidogrel 75mg tablet PO SCH (09:20)
[2022-02-11] MEDS: furosemide 20MG tablet PO SCH (09:20)
--- NOTE | 2022-02-11 09:58 | NUR ---
POC glucose test elevated r/t finishing breakfast less than 1hr from being rechecked.
[2022-02-11 15:00] VITALS: BP 112/41
--- NOTE | 2022-02-11 17:00 | NUR ---
RLE wounds care complete.
[2022-02-11 18:00] VITALS: BP 127/43
[2022-02-11] MEDS: insulin glargine (Lantus) pen - multi-dose SQ SCH (19:37)
[2022-02-11] MEDS: terazosin 5mg capsule PO SCH (20:27)
[2022-02-11] MEDS: HYDROcodone/acetaminophen 10/325mg tab PO PRN (21:21)
[2022-02-11 22:00] VITALS: BP 132/41
--- NOTE | 2022-02-11 22:15 | NUR ---
RN assumed care @1830. pt A&Ox4, sitting up in bed. Pt has home insulin pump on and states recent self bolus prior to change of shift. Per pt pump, at change of shift, it appears he had received a total of 44 units today. pt states , stated he could restart pump earlier that day. smelter charger aware. will continue to monitor pt glucose. pt glucose 234 prior to dinner. 2100 sugar check pt glucose 146. both pump and sensor located on abd, surrounding skin assessed and WDL. wound vac remains patent, no drainage. right lower extremity dressing change prior to shift change and remains intact. wctm
[2022-02-12 02:00] VITALS: BP 131/42
[2022-02-12 06:00] VITALS: BP 159/69
[2022-02-12] MEDS: nystatin 15 GM powder TP SCH ×3 (08:00→20:31)
--- NOTE | 2022-02-12 08:30 | NUR ---
BP 111/36. Diastolic blood pressure running low. Will recheck before giving lasix.
[2022-02-12] MEDS: clopidogrel 75mg tablet PO SCH (08:49)
[2022-02-12] MEDS: atorvastatin 20mg tablet PO SCH (08:49)
[2022-02-12] MEDS: ceFOXitin inj 1,000 MG in normal saline 100ml IV soln 100 ML IV SCH ×2 (08:49→18:55)
[2022-02-12] MEDS: carbidoba-levodopa 25-100mg tablet PO SCH ×3 (08:49→20:31)
[2022-02-12] MEDS: finasteride 5mg tablet PO SCH (10:00)
--- NOTE | 2022-02-12 10:00 | NUR ---
Bp 127/38. Will wait to give Lasix until diastolic bp increases. Will recheck blood pressure after patient eats lunch.
--- NOTE | 2022-02-12 10:00 | NUR ---
Patient has a insulin pump that he uses to regulate blood sugar. Educated patient on the importance of maintaining blood sugar below 160. Patient acknowledges education given and demonstrates great amount of knowledge regarding his blood sugar management.
[2022-02-12] MEDS: sodium bicarbonate (8.4%) inj. 100 MEQ in dextrose 5%-water 1,000 ML IV SCH (10:46)
[2022-02-12 11:00] VITALS: BP 113/45
--- NOTE | 2022-02-12 14:00 | NUR ---
Physical therapy at bedside.
[2022-02-12 15:00] VITALS: BP 122/49
[2022-02-12 15:14] LABS: BASOPHILS % (AUTO) 0.4 % (0-1); EOSINOPHILS % (AUTO) 0.8 % (0-6); HEMATOCRIT 27.5 % (42.0-52.0); HEMOGLOBIN 9.3 g/dl (14.0-17.9); LYMPHOCYTES # (AUTO) 1.1 X10'3 (1.1-4.8); LYMPHOCYTES % (AUTO) 18.2 % (21-51); MEAN CORPUSCULAR HEMOGLOBIN 29.7 PG (27.0-31.0); MEAN CORPUSCULAR HGB CONC 33.6 g/dL (33.0-36.5); MEAN CORPUSCULAR VOLUME 88.3 FL (78-98); MEAN PLATELET VOLUME 9.7 FL (7.4-10.4); MONOCYTES # (AUTO) 0.8 X10'3 (0-0.9); MONOCYTES % (AUTO) 13.9 % (2-12); NEUTROPHILS % (AUTO) 66.7 % (42-75); PLATELET COUNT 293 X10'3 (140-440); RED BLOOD COUNT 3.11 X10'6 (4.70-6.10); RED CELL DISTRIBUTION WIDTH 14.1 % (11.5-14.5)
[2022-02-12 15:27] LABS: ALANINE AMINOTRANSFERASE 15 U/L (12-78); ALBUMIN 2.1 G/DL (3.4-5.0); ALBUMIN/GLOBULIN RATIO 0.6 (1.1-1.5); ALKALINE PHOSPHATASE 93 IU/L (46-116); ANION GAP 7 (8-16); ASPARTATE AMINO TRANSFERASE 46 U/L (10-37); BILIRUBIN,TOTAL 0.6 MG/DL (0.1-1.0); BLOOD UREA NITROGEN 77 MG/DL (7-18); BUN/CREATININE RATIO 28.9 (5.4-32.0); CALCIUM 7.6 MG/DL (8.5-10.1); CHLORIDE 98 MMOL/L (99-107); CREATININE 2.66 MG/DL (0.60-1.10); GLUCOSE 232 MG/DL (70-104); MAGNESIUM 2.2 MG/DL (1.5-2.4); PHOSPHORUS 3.7 MG/DL (2.3-4.5); POTASSIUM 4.5 MMOL/L (3.5-5.1); SODIUM 133 MMOL/L (135-145); TOTAL CARBON DIOXIDE 27.6 MMOL/L (24-32); TOTAL PROTEIN 5.4 G/DL (6.4-8.2); eGFR 23 ML/MIN
[2022-02-12] MEDS: furosemide 20MG tablet PO SCH (17:00)
[2022-02-12 18:00] VITALS: BP 162/62
[2022-02-12] MEDS: insulin glargine (Lantus) pen - multi-dose SQ SCH (18:14)
[2022-02-12] MEDS: normal saline 1000ml 1,000 ML IV SCH ×2 (18:55→23:15)
[2022-02-12] MEDS: HYDROcodone/acetaminophen 10/325mg tab PO PRN (20:31)
[2022-02-12] MEDS: terazosin 5mg capsule PO SCH (20:31)
[2022-02-12] MEDS: insulin pump.resvr SQ SCH (21:49)
--- NOTE | 2022-02-12 21:50 | NUR ---
Pt states daughter set up pump for him, concerned with RN changing settings, RN states just double checking settings. pt insists daughter set up pump and gave breakdown to prior RN. pt insists on pump is accurate and does not wish for RN to double check pump at this time. pt states current dose 2.2unts, his monitor read 183. Fingerstick accucheck read 194. wctm
[2022-02-12 22:30] VITALS: BP 128/39
[2022-02-13 02:00] VITALS: BP 128/38
[2022-02-13 05:44] LABS: BASOPHILS % (AUTO) 0.6 % (0-1); EOSINOPHILS # (AUTO) 0.1 X10'3 (0-0.9); EOSINOPHILS % (AUTO) 1.7 % (0-6); HEMATOCRIT 24.7 % (42.0-52.0); HEMOGLOBIN 8.2 g/dl (14.0-17.9); LYMPHOCYTES # (AUTO) 1.4 X10'3 (1.1-4.8); LYMPHOCYTES % (AUTO) 23.9 % (21-51); MEAN CORPUSCULAR HEMOGLOBIN 29.9 PG (27.0-31.0); MEAN CORPUSCULAR HGB CONC 33.4 g/dL (33.0-36.5); MEAN CORPUSCULAR VOLUME 89.6 FL (78-98); MEAN PLATELET VOLUME 9.6 FL (7.4-10.4); MONOCYTES # (AUTO) 0.9 X10'3 (0-0.9); MONOCYTES % (AUTO) 15.6 % (2-12); NEUTROPHILS # (AUTO) 3.4 X10'3 (1.8-7.7); NEUTROPHILS % (AUTO) 58.2 % (42-75); PLATELET COUNT 269 X10'3 (140-440); RED BLOOD COUNT 2.75 X10'6 (4.70-6.10); RED CELL DISTRIBUTION WIDTH 14.5 % (11.5-14.5); WHITE BLOOD COUNT 5.8 X10'3 (4.5-11.0)
[2022-02-13 06:00] VITALS: BP 138/46
[2022-02-13 06:00] LABS: ALBUMIN 1.7 G/DL (3.4-5.0); ANION GAP 7 (8-16); BLOOD UREA NITROGEN 71 MG/DL (7-18); BUN/CREATININE RATIO 32.1 (5.4-32.0); CALCIUM 7.3 MG/DL (8.5-10.1); CHLORIDE 103 MMOL/L (99-107); CREATININE 2.21 MG/DL (0.60-1.10); GLUCOSE 241 MG/DL (70-104); MAGNESIUM 2.1 MG/DL (1.5-2.4); PHOSPHORUS 3.5 MG/DL (2.3-4.5); POTASSIUM 4.6 MMOL/L (3.5-5.1); SODIUM 136 MMOL/L (135-145); TOTAL CARBON DIOXIDE 25.7 MMOL/L (24-32); eGFR 29 ML/MIN
--- NOTE | 2022-02-13 06:30 | NUR ---
Patient in room PCU 3013. I have received report from TOMMY Owens and had the opportunity to ask questions and assume patient care.
[2022-02-13] MEDS: insulin pump.resvr SQ SCH ×4 (07:00→21:59)
[2022-02-13] MEDS: carbidoba-levodopa 25-100mg tablet PO SCH ×3 (09:34→20:37)
[2022-02-13] MEDS: clopidogrel 75mg tablet PO SCH (09:34)
[2022-02-13] MEDS: furosemide 20MG tablet PO SCH (09:34)
[2022-02-13] MEDS: HYDROcodone/acetaminophen 10/325mg tab PO PRN ×2 (09:36→20:36)
[2022-02-13] MEDS: finasteride 5mg tablet PO SCH (09:36)
[2022-02-13] MEDS: ceFOXitin inj 1,000 MG in normal saline 100ml IV soln 100 ML IV SCH ×2 (09:36→20:42)
[2022-02-13] MEDS: nystatin 15 GM powder TP SCH ×3 (09:37→21:59)
[2022-02-13] MEDS: atorvastatin 20mg tablet PO SCH (09:42)
[2022-02-13 11:00] VITALS: BP 130/46
[2022-02-13 15:00] VITALS: BP 110/40
[2022-02-13 18:00] VITALS: BP 110/40
--- NOTE | 2022-02-13 18:45 | NUR ---
Problems reprioritized. Patient report given, questions answered & plan of care reviewed with TOMMY Lay.
--- NOTE | 2022-02-13 18:49 | NUR ---
Patient in room PCU 3013B. I have received report from Paula RN and had the opportunity to ask questions and assume patient care.
[2022-02-13] MEDS: terazosin 5mg capsule PO SCH (20:37)
[2022-02-13 22:00] VITALS: BP 134/60
[2022-02-14] MEDS: HYDROcodone/acetaminophen 10/325mg tab PO PRN ×2 (00:15→20:18)
[2022-02-14 02:00] VITALS: BP 133/41
[2022-02-14 06:00] VITALS: BP 139/50
[2022-02-14 06:45] LABS: BASOPHILS % (AUTO) 0.7 % (0-1); EOSINOPHILS # (AUTO) 0.1 X10'3 (0-0.9); EOSINOPHILS % (AUTO) 2.1 % (0-6); HEMATOCRIT 24.9 % (42.0-52.0); HEMOGLOBIN 8.4 g/dl (14.0-17.9); LYMPHOCYTES # (AUTO) 1.8 X10'3 (1.1-4.8); MEAN CORPUSCULAR HEMOGLOBIN 30.1 PG (27.0-31.0); MEAN CORPUSCULAR HGB CONC 33.5 g/dL (33.0-36.5); MEAN CORPUSCULAR VOLUME 89.8 FL (78-98); MEAN PLATELET VOLUME 9.6 FL (7.4-10.4); MONOCYTES % (AUTO) 14.8 % (2-12); NEUTROPHILS # (AUTO) 3.9 X10'3 (1.8-7.7); NEUTROPHILS % (AUTO) 56.4 % (42-75); PLATELET COUNT 285 X10'3 (140-440); RED BLOOD COUNT 2.78 X10'6 (4.70-6.10); RED CELL DISTRIBUTION WIDTH 14.5 % (11.5-14.5); WHITE BLOOD COUNT 6.9 X10'3 (4.5-11.0)
--- NOTE | 2022-02-14 06:46 | NUR ---
Problems reprioritized. Patient report given, questions answered & plan of care reviewed with Devorah SANDERS.
[2022-02-14 07:13] LABS: ALBUMIN 1.9 G/DL (3.4-5.0); ANION GAP 8 (8-16); BLOOD UREA NITROGEN 62 MG/DL (7-18); BUN/CREATININE RATIO 33.3 (5.4-32.0); CALCIUM 7.9 MG/DL (8.5-10.1); CHLORIDE 105 MMOL/L (99-107); CREATININE 1.86 MG/DL (0.60-1.10); GLUCOSE 149 MG/DL (70-104); POTASSIUM 4.3 MMOL/L (3.5-5.1); SODIUM 139 MMOL/L (135-145); TOTAL CARBON DIOXIDE 26.1 MMOL/L (24-32); eGFR 35 ML/MIN
[2022-02-14] MEDS: ceFOXitin inj 1,000 MG in normal saline 100ml IV soln 100 ML IV SCH ×2 (07:35→21:58)
[2022-02-14] MEDS: furosemide 20MG tablet PO SCH (07:35)
[2022-02-14] MEDS: finasteride 5mg tablet PO SCH (07:35)
[2022-02-14] MEDS: atorvastatin 20mg tablet PO SCH (07:35)
[2022-02-14] MEDS: clopidogrel 75mg tablet PO SCH (07:35)
[2022-02-14] MEDS: carbidoba-levodopa 25-100mg tablet PO SCH ×3 (07:35→20:19)
[2022-02-14] MEDS: nystatin 15 GM powder TP SCH ×3 (08:00→20:19)
[2022-02-14] MEDS: insulin pump.resvr SQ SCH ×3 (09:00→21:00)
--- NOTE | 2022-02-14 09:48 | NUR ---
Reassessment: ONS still pending physician approval in EMR though PO intake has significantly improved since last RD assessment (02/11), up to mostly 100% PO intake. LBM 02/13. No nutrition intervention implemented at this time. Will continue to follow and make recommendations as appropriate. Recommendations: 1. Continue carb controlled diet; no assistance/texture modification needed per pt despite Parkinson's hx w/ forearm tremors 2. Kemal smoothie BIDBL, Glucerna BIDBD; pending MD verification in EMR; Glucerna may not be indicated if pt continues with current PO intake of meals 3. Bowel care PRN 4. Weekly scaled weights Addendum: 02/14/22 at [address] Amended: Links added.
[2022-02-14 11:00] VITALS: BP 127/47
[2022-02-14 15:00] VITALS: BP 134/43
[2022-02-14 18:00] VITALS: BP 154/48
[2022-02-14] MEDS: terazosin 5mg capsule PO SCH (20:18)
[2022-02-14 22:00] VITALS: BP 136/44
[2022-02-15 02:00] VITALS: BP 150/48
[2022-02-15 06:00] VITALS: BP 163/42
[2022-02-15 06:47] LABS: BASOPHILS # (AUTO) 0.1 X10'3 (0-0.2); BASOPHILS % (AUTO) 0.9 % (0-1); EOSINOPHILS # (AUTO) 0.1 X10'3 (0-0.9); EOSINOPHILS % (AUTO) 2.2 % (0-6); HEMATOCRIT 23.9 % (42.0-52.0); HEMOGLOBIN 7.9 g/dl (14.0-17.9); LYMPHOCYTES # (AUTO) 1.4 X10'3 (1.1-4.8); LYMPHOCYTES % (AUTO) 23.5 % (21-51); MEAN CORPUSCULAR HEMOGLOBIN 29.3 PG (27.0-31.0); MEAN CORPUSCULAR HGB CONC 32.9 g/dL (33.0-36.5); MEAN CORPUSCULAR VOLUME 89.2 FL (78-98); MEAN PLATELET VOLUME 9.3 FL (7.4-10.4); MONOCYTES % (AUTO) 16.4 % (2-12); NEUTROPHILS # (AUTO) 3.5 X10'3 (1.8-7.7); PLATELET COUNT 275 X10'3 (140-440); RED BLOOD COUNT 2.68 X10'6 (4.70-6.10); RED CELL DISTRIBUTION WIDTH 14.4 % (11.5-14.5); WHITE BLOOD COUNT 6.1 X10'3 (4.5-11.0)
[2022-02-15] MEDS: insulin pump.resvr SQ SCH (07:00)
[2022-02-15 07:20] LABS: ALBUMIN 1.8 G/DL (3.4-5.0); ANION GAP 6 (8-16); BLOOD UREA NITROGEN 47 MG/DL (7-18); BUN/CREATININE RATIO 31.1 (5.4-32.0); CALCIUM 7.6 MG/DL (8.5-10.1); CHLORIDE 107 MMOL/L (99-107); CREATININE 1.51 MG/DL (0.60-1.10); GLUCOSE 140 MG/DL (70-104); MAGNESIUM 1.8 MG/DL (1.5-2.4); PHOSPHORUS 3.1 MG/DL (2.3-4.5); POTASSIUM 4.2 MMOL/L (3.5-5.1); SODIUM 140 MMOL/L (135-145); eGFR 45 ML/MIN
[2022-02-15] MEDS: furosemide 20MG tablet PO SCH (07:37)
[2022-02-15] MEDS: carbidoba-levodopa 25-100mg tablet PO SCH (07:37)
[2022-02-15] MEDS: clopidogrel 75mg tablet PO SCH (07:38)
[2022-02-15] MEDS: atorvastatin 20mg tablet PO SCH (07:38)
[2022-02-15] MEDS: finasteride 5mg tablet PO SCH (07:38)
[2022-02-15] MEDS: ceFOXitin inj 1,000 MG in normal saline 100ml IV soln 100 ML IV SCH (07:39)
[2022-02-15 07:56] LABS: PLATELET ESTIMATE NORMAL; TOTAL CELLS COUNTED 100
[2022-02-15] MEDS: nystatin 15 GM powder TP SCH (08:00)
--- NOTE | 2022-02-15 11:52 | NUR ---
Report was called to Dori SANDERS over at [facility]. Per her request, IVs will be kept in place. I called Dr. Mon to ask if he wanted nunez catheter removed, I was not able to get a hold of him. Dori SANDERS aware that patient will be sent with nunez in place. Daughter Denisse called/informed about transfer, she is agreeable. Patient safe, free from injuries.
== END 2022-02-15 12:20 | DRG 252 ==
LOC: PAS IN 02-06 11:27 → CICU 2S 02-06 22:44 → PCU 3S 02-07 17:42
PROVIDERS: ADMIT Surgery; ATTEND Surgery
PROC: 04CR0ZZ Extirpation of Matter from Right Posterior Tibial Artery, Open Approach (ICD-10-PCS; 2022-02-06)
PROC: 04CK0ZZ Extirpation of Matter from Right Femoral Artery, Open Approach (ICD-10-PCS; 2022-02-06)
PROC: 04CM0ZZ Extirpation of Matter from Right Popliteal Artery, Open Approach (ICD-10-PCS; 2022-02-06)
PROC: 04UK0JZ Supplement Right Femoral Artery with Synthetic Substitute, Open Approach (ICD-10-PCS; 2022-02-06)
PROC: 04U Lower Arteries, Supplement (ICD-10-PCS; 2022-02-06)
PROC: 04U Lower Arteries, Supplement (ICD-10-PCS; 2022-02-06)
PROC: 041K0KN Bypass Right Femoral Artery to Posterior Tibial Artery with Nonautologous Tissue Substitute, Open Approach (ICD-10-PCS; principal; 2022-02-06 15:11)
DX: I70.211 Atherosclerosis of native arteries of extremities with intermittent claudication, right leg (principal); N17.0 Acute kidney failure with tubular necrosis; E87.1 Hypo-osmolality and hyponatremia; E11.51 Type 2 diabetes mellitus with diabetic peripheral angiopathy without gangrene; Z96.41 Presence of insulin pump (external) (internal); E11.65 Type 2 diabetes mellitus with hyperglycemia; I25.10 Atherosclerotic heart disease of native coronary artery without angina pectoris; N40.0 Benign prostatic hyperplasia without lower urinary tract symptoms; Z20.822 Contact with and (suspected) exposure to COVID-19; I10 Essential (primary) hypertension; Z79.899 Other long term (current) drug therapy; E87.5 Hyperkalemia
CPT/HCPCS: 36415; 71045; 71046; 73560; 76000; 80048; 80053; 81001; 82550; 82570; 82948; 83036; 83735; 84100; 84132; 84156; 84300; 85007; 85025; 85610; 85730; 86885; 86900; 86901; 86920; 87081; 87207; 87635; 88300; 93005; 93926; 94640; 94760; 97110; 97116; 97162; 97530; A4618; A6455; A7000; C1758; C1768; G0378; J0360; J0690; J0694; J1100; J1170; J1644; J1815; J2270; J2405; J2704; J2710; J3010; J3480; J3490; J7030; J7040; J7070; J7100; J7120; P9045; Q9967; S0020